=== PATIENT | male | born 1950 | race Caucasian/White ===

== ENCOUNTER → 2016-10-23 | Outpatient (REF) | payer OTHER ==
[~2016-10-23] MED LIST: ASPI1TAB PO; CRES5TAB PO; IBUP800T23 PO; LISI-538 PO; VITATAB11 PO
[2016-10-23 12:52] LABS: MEAN CORPUSCULAR HEMOGLOBIN 30.4 pg (27.0-33.0); MEAN CORPUSCULAR HGB CONC 34.6 g/dl (32.0-36.5); RED CELL DISTRIBUTION WIDTH 12.9 % (11.5-14.5); WHITE BLOOD COUNT 12.6 K/mm3 (4.0-10.0)
[2016-10-23 13:26] LABS: ALBUMIN 4.4 GM/DL (3.2-5.2); ALBUMIN/GLOBULIN RATIO 1.33 (1.00-1.93); BILIRUBIN,TOTAL 0.9 MG/DL (0.2-1.0); CALCIUM LEVEL 9.7 MG/DL (8.8-10.2); CREATININE FOR GFR 1.33 MG/DL (0.70-1.30); GLOMERULAR FILTRATION RATE 57.3 (>49); POTASSIUM SERUM 4.6 MEQ/L (3.5-5.1); TOTAL PROTEIN 7.7 GM/DL (6.4-8.2)
== END ==
LOC: M SFHCADAM 10:06
PROVIDERS: ATTEND Physician Assistant
DX: K74.69 Other cirrhosis of liver (principal); E78.00 Pure hypercholesterolemia, unspecified; E55.9 Vitamin D deficiency, unspecified

== ENCOUNTER → 2016-11-04 | Outpatient (CLI) | payer OTHER ==
--- NOTE | 2016-11-04 10:36 | REP ---
Right upper quadrant sonography: History: Right upper quadrant pain. Comparison study: May 01, 2016. Findings: Scanning through the right upper quadrant of the abdomen demonstrates a normal sized, thin-walled gallbladder without evidence of stone or polyp. Common bile duct is normal measuring 0.4 cm in greatest diameter. No focal liver lesion is seen. Liver size is normal. No pancreatic abnormality is observed. No right renal abnormality is seen. There is no evidence of ascites. The right kidney measures 11.9 x 7.4 x 5.4 cm. Impression: Negative right upper quadrant sonography.
== END ==
LOC: M WHC 08:50
PROVIDERS: ATTEND Physician Assistant
DX: K74.69 Other cirrhosis of liver (principal)

== ENCOUNTER → 2016-11-06 | Outpatient (CLI) | payer OTHER ==
--- NOTE | 2016-11-06 08:46 | REP ---
MRI LUMBAR SPINE WITHOUT AND WITH CONTRAST: HISTORY: Back pain. CONTRAST: ProHance, 9 mL. COMPARISON: 06/21/2010. Decreased signal intensity on T2-weighted images is present in the lumbar intervertebral discs. The discs are decreased in height. These findings are consistent with disc degeneration. A diffuse disc bulge is present at the L1-2 level. There is minimal compression of the thecal sac. The L1 nerves exit the neural foramina without compression. A diffuse disc bulge is present at the L2-3 level. There is hypertrophy of the ligamenta flava and posterior articulating facets. These findings produce minimal central canal stenosis. The L2 nerves exit the neural foramina without compression. A diffuse disc bulge is present at the L3-4 level. There is hypertrophy of the ligamenta flava and posterior articulating facets. These findings produce minimal central canal stenosis. The L3 nerves exit the neural foramina without compression. A diffuse disc bulge and small central disc protrusion are present at the L4-5 level. There is hypertrophy of the ligamenta flava and posterior articulating facets. These findings produce minimal central canal stenosis. The L4 nerves exit the neural foramina without compression. A right laminectomy defect is present. A small amount of enhancing scar tissue is present in the right lateral aspect of the spinal canal. The scar tissue involves the right L5 nerve. The degree of enhancement is decreased compared to the previous study. A diffuse disc bulge is present at the L5-S1 level. There is minimal compression of the thecal sac. There is hypertrophy of the posterior articulating facets. There is compression of the L5 nerves in the neural foramina. The conus medullaris is normal in appearance terminating at the level of the T12-L1 intervertebral disc. Normal signal intensity is present in the lumbar vertebral bodies. IMPRESSION: 1. Diffuse disc bulge at the L1-2 and L5-L1 levels with minimal thecal sac compression. There is compression of the L5 nerves in the neural foramina. 2. Minimal central canal stenosis at the L2-3 and L3-4 levels secondary to disc bulge, ligamentous and facet hypertrophy. 3. Minimal central canal stenosis at the L4-5 level secondary to disc bulge, disc protrusion, ligamentous and facet hypertrophy. A right laminectomy defect is present. Scar tissue involve the right L5 nerve. The degree of enhancement is decreased compared to the previous study. The canal stenosis at the above levels is a new finding. Signed by Rah Rosales MD 11/06/2016 09:06 A
== END ==
LOC: M RAD 06:42
PROVIDERS: ATTEND Physician Assistant
DX: M54.5 Low back pain (principal)

== ENCOUNTER → 2016-12-24 | Outpatient (CLI) | payer OTHER ==
[~2016-12-24] VITALS: Ht 172.7 cm; Wt 88.0 kg
[~2016-12-24] MED LIST changes: +LIDOCAINE 2% INJ 100 MG/5 ML SDV (FOR ANES.) As Ordered ONE; +NAPR375T2 PO; +NS 1,000 ML IV SCH; +PROPOFOL 200 MG/20 ML VIAL As Ordered ONE
--- NOTE | 2016-12-24 09:43 | ROOR ---
Patient Name: Chandan Swann Procedure Date: 12/24/2016 9:24 AM Date of : 1950 Age: 66 Room: [facility] Gender: Male Note Status: Finalized Procedure: Colonoscopy Indications: High risk colon cancer surveillance: Personal history of colonic polyps, Last colonoscopy: October 2015 Providers: Vijay FOWLER MD Referring MD: Fredis Jay MD Requesting Provider: Medicines: Monitored Anesthesia Care Complications: No immediate complications. Procedure: Pre-Anesthesia Assessment: - The heart rate, respiratory rate, oxygen saturations, blood pressure, adequacy of pulmonary ventilation, and response to care were monitored throughout the procedure. The Colonoscope was introduced through the anus and advanced to the cecum, identified by appendiceal orifice and ileocecal valve. The colonoscopy was performed without difficulty. The patient tolerated the procedure well. The quality of the bowel preparation was adequate. Findings: The perianal and digital rectal examinations were normal. (EXAM: Complete, PREP:Adequate) A 4 mm polyp was found in the hepatic flexure. The polyp was sessile. The polyp was removed with a cold snare. Resection and retrieval were complete. Internal hemorrhoids were found during retroflexion. The hemorrhoids were medium-sized. The exam was otherwise without abnormality on direct and retroflexion views. Impression: - One 4 mm polyp at the hepatic flexure, removed with a cold snare. Resected and retrieved. - Internal hemorrhoids. - The examination was otherwise normal on direct and retroflexion views. Recommendation: - Repeat colonoscopy in 5 years for surveillance. Vijay Fowler MD Vijay FOWLER MD 12/24/2016 9:42:48 AM This report has been signed electronically. Number of Addenda: 0 Note Initiated On: 12/24/2016 9:24 AM Estimated Blood Loss: Estimated blood loss: none.
[2016-12-24 10:10] VITALS: BP 114/70
== END | disposition home or self-care (01) ==
LOC: M OPP 07:47
PROVIDERS: ATTEND Internal Medicine Gastroenterology
DX: Z12.11 Encounter for screening for malignant neoplasm of colon (principal); D12.3 Benign neoplasm of transverse colon; K64.8 Other hemorrhoids; Z86.010 Personal history of colon polyps; I10 Essential (primary) hypertension; E78.5 Hyperlipidemia, unspecified; M19.90 Unspecified osteoarthritis, unspecified site; K74.60 Unspecified cirrhosis of liver; F17.210 Nicotine dependence, cigarettes, uncomplicated; Z57.8 Occupational exposure to other risk factors; Z86.19 Personal history of other infectious and parasitic diseases; Z79.82 Long term (current) use of aspirin; Z79.899 Other long term (current) drug therapy; Z79.1 Long term (current) use of non-steroidal anti-inflammatories (NSAID)

== ENCOUNTER → 2017-04-24 | Outpatient (REF) | payer OTHER ==
[~2017-04-24] MED LIST changes: +IBUP1TAB7 PO; -IBUP800T23 PO; -LIDOCAINE 2% INJ 100 MG/5 ML SDV (FOR ANES.) As Ordered ONE; +NAPR-855 PO; -NAPR375T2 PO; -NS 1,000 ML IV SCH; -PROPOFOL 200 MG/20 ML VIAL As Ordered ONE
[2017-04-24 12:49] LABS: ALBUMIN/GLOBULIN RATIO 1.18 (1.00-1.93); ALKALINE PHOSPHATASE 80 U/L (45-117); ALT/SGPT 42 U/L (12-78); ANION GAP 6 MEQ/L (8-16); AST/SGOT 32 U/L (15-37); BILIRUBIN,TOTAL 0.7 MG/DL (0.2-1.0); BLOOD UREA NITROGEN 24 MG/DL (7-18); CALCIUM LEVEL 9.4 MG/DL (8.8-10.2); CARBON DIOXIDE LEVEL 27 MEQ/L (21-32); CHLORIDE LEVEL 107 MEQ/L (98-107); CREATININE FOR GFR 0.98 MG/DL (0.70-1.30); GLOMERULAR FILTRATION RATE > 60.0 (>49); GLUCOSE, FASTING 122 MG/DL (80-110); POTASSIUM SERUM 5.1 MEQ/L (3.5-5.1); SODIUM LEVEL 140 MEQ/L (136-145); TOTAL PROTEIN 7.4 GM/DL (6.4-8.2)
== END ==
LOC: M SFHCADAM 08:31
PROVIDERS: ATTEND Physician Assistant
DX: B18.2 Chronic viral hepatitis C (principal); I10 Essential (primary) hypertension

== ENCOUNTER → 2017-10-07 | Outpatient (REF) | payer OTHER ==
[2017-10-07 12:56] LABS: BLOOD UREA NITROGEN 21 MG/DL (7-18); CREATININE FOR GFR 1.01 MG/DL (0.70-1.30); GLOMERULAR FILTRATION RATE > 60.0 (>49)
== END ==
LOC: M LABDRWAD 12:24
PROVIDERS: ATTEND Physical Medicine & Rehabilitation
DX: M51.36 Other intervertebral disc degeneration, lumbar region (principal); M47.896 Other spondylosis, lumbar region

== ENCOUNTER → 2017-11-13 | Outpatient (REF) | payer OTHER ==
[2017-11-13 13:14] LABS: PLATELET COUNT, AUTOMATED 222 10^3/uL (150-450)
[2017-11-13 13:25] LABS: INR 0.94; PROTHROMBIN TIME 12.7 SECONDS (12.4-14.5)
[2017-11-13 13:26] LABS: PARTIAL THROMBOPLASTIN TIME 35.1 SECONDS (26.8-37.9)
== END ==
LOC: M LABDRAW1 11:40
DX: M51.37 Other intervertebral disc degeneration, lumbosacral region (principal)

== ENCOUNTER → 2018-05-08 | Outpatient (REF) | payer OTHER ==
[2018-05-09 16:49] LABS: HEMATOCRIT 46.7 % (42.0-52.0); HEMOGLOBIN 15.7 g/dl (13.5-17.5); MEAN CORPUSCULAR HGB CONC 33.6 g/dl (32.0-36.5); MEAN CORPUSCULAR VOLUME 92.1 fl (80.0-96.0); PLATELET COUNT, AUTOMATED 233 10^3/uL (150-450); RED BLOOD COUNT 5.07 10^6/uL (4.30-6.10); RED CELL DISTRIBUTION WIDTH 13.7 % (11.5-14.5); WHITE BLOOD COUNT 10.1 10^3/uL (4.0-10.0)
[2018-05-09 17:11] LABS: ALBUMIN 4.2 GM/DL (3.2-5.2); ALBUMIN/GLOBULIN RATIO 1.14 (1.00-1.93); ALKALINE PHOSPHATASE 75 U/L (45-117); ALT/SGPT 58 U/L (12-78); ANION GAP 9 MEQ/L (8-16); AST/SGOT 38 U/L (7-37); BILIRUBIN,TOTAL 0.4 MG/DL (0.2-1.0); BLOOD UREA NITROGEN 31 MG/DL (7-18); CALCIUM LEVEL 9.2 MG/DL (8.8-10.2); CARBON DIOXIDE LEVEL 27 MEQ/L (21-32); CHLORIDE LEVEL 104 MEQ/L (98-107); CHOLESTEROL LEVEL 149 MG/DL (<200); CHOLESTEROL RISK RATIO 4.138 (<5); FREE T4 0.76 NG/DL (0.76-1.46); GLOMERULAR FILTRATION RATE > 60.0 (>49); GLUCOSE, FASTING 127 MG/DL (70-100); HDL CHOLESTEROL 36 MG/DL (>40); LDL CHOLESTEROL 67.2 MG/DL (<100); NON-HDL-C 113 MG/DL; POTASSIUM SERUM 4.7 MEQ/L (3.5-5.1); SODIUM LEVEL 140 MEQ/L (136-145); TOTAL PROTEIN 7.9 GM/DL (6.4-8.2); TRIGLYCERIDES LEVEL 229 MG/DL (<150)
[2018-05-11 09:52] LABS: TOTAL 25(OH) VITAMIN D 73.5 NG/ML (30.0-100.0)
== END ==
LOC: M SFHCADAM 19:00
DX: B18.2 Chronic viral hepatitis C (principal); K74.69 Other cirrhosis of liver; E78.00 Pure hypercholesterolemia, unspecified; I10 Essential (primary) hypertension; R63.5 Abnormal weight gain; E55.9 Vitamin D deficiency, unspecified

== ENCOUNTER → 2018-05-28 | Outpatient (CLI) | payer OTHER | LOC: M WHC 08:55 | DX: B18.2 Chronic viral hepatitis C (principal); K74.69 Other cirrhosis of liver | CPT/HCPCS: 76705 ==

== ENCOUNTER → 2018-06-02 | Outpatient (CLI) | payer OTHER | LOC: M RAD 08:11 | DX: Z12.2 Encounter for screening for malignant neoplasm of respiratory organs (principal); F17.200 Nicotine dependence, unspecified, uncomplicated | CPT/HCPCS: G0297 ==

== ENCOUNTER → 2018-08-13 | Outpatient (REF) | payer OTHER ==
[2018-08-13 14:27] LABS: ALBUMIN 4.3 GM/DL (3.2-5.2); ALBUMIN/GLOBULIN RATIO 1.26 (1.00-1.93); ALKALINE PHOSPHATASE 75 U/L (45-117); ALT/SGPT 53 U/L (12-78); AST/SGOT 31 U/L (7-37); BILIRUBIN,DIRECT 0.1 MG/DL (0.0-0.2); BILIRUBIN,TOTAL 0.5 MG/DL (0.2-1.0); ESTIMATED AVERAGE GLUCOSE 137 MG/DL (60-110); FREE T4 0.83 NG/DL (0.76-1.46); HEMOGLOBIN A1c 6.4 %; TOTAL PROTEIN 7.7 GM/DL (6.4-8.2); URINE TOTAL PROTEIN 5.4 MG/DL (0-12)
[2018-08-13 14:29] LABS: FOLATE 13.4 NG/ML (>5.4)
[2018-08-14 14:47] LABS: ANTINUCLEAR ANTIBODIES DIRECT Negative (Negative); Lyme Disease IgG/IgM Antibodie <0.91 ISR (0.00-0.90); Lyme Disease IgM Ab Quantitati <0.80 index (0.00-0.79)
== END ==
LOC: M LABDRAW1 13:47
DX: M48.061 Spinal stenosis, lumbar region without neurogenic claudication (principal)

== ENCOUNTER → 2019-03-22 | Outpatient (REF) | payer OTHER ==
[~2019-03-22] MED LIST changes: -ASPI1TAB PO; +ASPI81TA26 PO
[2019-03-22 12:32] LABS: BLOOD UREA NITROGEN 21 MG/DL (7-18); CREATININE FOR GFR 1.07 MG/DL (0.70-1.30); GLOMERULAR FILTRATION RATE > 60.0 (>49)
== END ==
LOC: M LABDRAW1 11:10
PROVIDERS: ATTEND Physician Assistant
DX: M47.896 Other spondylosis, lumbar region (principal)

== ENCOUNTER → 2019-06-15 | Outpatient (CLI) | payer OTHER, MEDICARE ==
--- NOTE | 2019-06-15 10:49 | REP ---
Right upper quadrant abdominal ultrasound: Comparison is 05/28/2018. There is no cholelithiasis, gallbladder wall thickening or pericholecystic fluid. There is no intrahepatic or extra hepatic biliary duct dilatation. The common duct measures 4.8 mm in diameter. The hepatic parenchyma is hyperechoic compatible with hepato steatosis. There is a 1.6 centimeter upper circumscribed hepatic left lobe cyst containing internal echoes, likely debris. There are no solid hepatic masses. The visualized pancreatic parenchyma is unremarkable. There is no right renal calculus, hydronephrosis, mass or cyst. The right kidney is normal size measuring 11.5 x 5.4 x 5.9 cm. Impression: Hepato steatosis. Hepatic left lobe cyst. There is no hepatic mass. Electronically Signed by Del Dumas MD 06/15/2019 10:41 A
== END ==
LOC: M WHC 09:07
PROVIDERS: ATTEND Physician Assistant
DX: K74.69 Other cirrhosis of liver (principal); K76.0 Fatty (change of) liver, not elsewhere classified; K76.89 Other specified diseases of liver

== ENCOUNTER → 2019-10-23 | Outpatient (REF) | payer OTHER ==
[2019-10-23 17:33] LABS: MEAN CORPUSCULAR HEMOGLOBIN 30.1 pg (27.0-33.0); MEAN CORPUSCULAR VOLUME 94.2 fl (80.0-96.0); PLATELET COUNT, AUTOMATED 193 10^3/uL (150-450); RED BLOOD COUNT 5.31 10^6/uL (4.30-6.10); WHITE BLOOD COUNT 9.7 10^3/uL (4.0-10.0)
[2019-10-23 17:40] LABS: ALT/SGPT 91 U/L (12-78); BILIRUBIN,TOTAL 0.9 MG/DL (0.2-1.0); BLOOD UREA NITROGEN 19 MG/DL (7-18); CALCIUM LEVEL 9.7 MG/DL (8.8-10.2); CARBON DIOXIDE LEVEL 26 MEQ/L (21-32); CHLORIDE LEVEL 106 MEQ/L (98-107); CHOLESTEROL LEVEL 182 MG/DL (<200); CHOLESTEROL RISK RATIO 5.515 (<5); CREATININE FOR GFR 1.07 MG/DL (0.70-1.30); GLOMERULAR FILTRATION RATE > 60.0 (>49); GLUCOSE, FASTING 167 MG/DL (70-100); HDL CHOLESTEROL 33 MG/DL (>40); LDL CHOLESTEROL 93 MG/DL (<100); NON-HDL-C 149 MG/DL; POTASSIUM SERUM 4.7 MEQ/L (3.5-5.1); SODIUM LEVEL 139 MEQ/L (136-145); TOTAL PROTEIN 7.7 GM/DL (6.4-8.2); TRIGLYCERIDES LEVEL 279 MG/DL (<150)
[2019-10-25 08:55] LABS: TOTAL 25(OH) VITAMIN D 59.7 NG/ML (30.0-100.0)
== END ==
LOC: M SFHCADAM 08:19
PROVIDERS: ATTEND Physician Assistant
DX: K74.69 Other cirrhosis of liver (principal); B18.2 Chronic viral hepatitis C; I10 Essential (primary) hypertension; K74.0 Hepatic fibrosis

== ENCOUNTER → 2019-11-11 | Outpatient (CLI) | payer OTHER, MEDICARE ==
--- NOTE | 2019-11-11 08:44 | REP ---
Abdominal right upper quadrant ultrasound for cirrhosis: Comparison is 06/15/2019. There is no cholelithiasis, gallbladder wall thickening or pericholecystic fluid. There is no intrahepatic or extrahepatic biliary duct dilatation. The common biliary duct measures 6 mm in diameter. The hepatic parenchyma is diffusely hyperechoic and difficult to penetrate with the acoustic beam, compatible with hepato steatosis. The There are no solid hepatic masses. There is a cyst in the hepatic left lobe measuring 1.8 x 1.7 x 1.9 cm. This cyst measured 1.6 cm on the previous study. The pancreas is obscured by the dense hepatic parenchyma and bowel gas. The right kidney is normal size measuring report 9-5.7 x 6 x 1 cm. There is no right renal solid or cystic mass. There is no right renal calculus or hydronephrosis. There is no right upper quadrant free fluid. Impression: The hepatic parenchyma is diffusely echogenic compatible with hepato steatosis. There are no solid hepatic masses. There is a 1.9 cm hepatic left lobe cyst. Electronically Signed by Del Dumas MD 11/11/2019 08:36 A
== END ==
LOC: M RAD 08:03
PROVIDERS: ATTEND Physician Assistant
DX: K74.69 Other cirrhosis of liver (principal)

== ENCOUNTER → 2019-12-01 | Outpatient (REF) | payer MEDICARE, OTHER ==
[2019-12-01 20:35] LABS: HEMOGLOBIN A1c 9.6 %
[2019-12-01 21:53] LABS: ALBUMIN 4.4 GM/DL (3.2-5.2); ALT/SGPT 96 U/L (12-78); BILIRUBIN,TOTAL 0.4 MG/DL (0.2-1.0); BLOOD UREA NITROGEN 24 MG/DL (7-18); CALCIUM LEVEL 10.1 MG/DL (8.8-10.2); CARBON DIOXIDE LEVEL 27 MEQ/L (21-32); CHLORIDE LEVEL 99 MEQ/L (98-107); CREATININE FOR GFR 1.35 MG/DL (0.70-1.30); FERRITIN 694 NG/ML (26-388); GLOMERULAR FILTRATION RATE 55.8 (>49); GLUCOSE, FASTING 424 MG/DL (70-100); POTASSIUM SERUM 5.4 MEQ/L (3.5-5.1); SODIUM LEVEL 136 MEQ/L (136-145); TOTAL PROTEIN 8.1 GM/DL (6.4-8.2)
[2019-12-03 09:54] LABS: HEPATITIS B SURFACE ANTIGEN NEGATIVE (NEGATIVE)
[2019-12-03 10:22] LABS: HEPATITIS B CORE ANTIBODY IGM NEGATIVE (NEGATIVE)
[2019-12-03 10:24] LABS: HEPATITIS A ANTIBODY IGM NEGATIVE (NEGATIVE)
[2019-12-03 10:53] LABS: HEPATITIS C VIRUS ABY INDEX > 11.0 INDEX (<0.8)
[2019-12-06 14:11] LABS: ANTI-MITOCHONDRIAL ANTIBODY <20.0 Units (0.0-20.0); ANTINUCLEAR ANTIBODIES DIRECT Negative (Negative); HEPATITIS C QUANTITATION HCV Not Detected IU/mL (.)
== END ==
LOC: M SFHCADAM 16:33
PROVIDERS: ATTEND Physician Assistant
DX: I10 Essential (primary) hypertension (principal); R73.01 Impaired fasting glucose; B18.2 Chronic viral hepatitis C
CPT/HCPCS: 80053; 82728; 83036; 86038; 86255; 86705; 86709; 86803; 87340; 87521; 87522; G0463

== ENCOUNTER → 2019-12-14 | Outpatient (CLI) | payer MEDICARE, OTHER ==
[2019-12-14 17:30] LABS: BLOOD UREA NITROGEN 20 MG/DL (7-18); CREATININE FOR GFR 1.18 MG/DL (0.70-1.30); GLOMERULAR FILTRATION RATE > 60.0 (>49); IRON (FE) 102 UG/DL (65-175); TOTAL IRON BINDING CAPACITY 352 UG/DL (250-450)
[2019-12-21 10:06] LABS: AFP TUMOR L3% 6.9 % (0.0-9.9); AFP TUMOR TOTAL 6.1 ng/mL (0.0-8.0); ANCA-ATYPICAL <1:20 titer (Neg:<1:20); CYTOPLASMIC NEUTROP AB ANCA-C <1:20 titer (Neg:<1:20); PERINUCLEAR AB ANCA-P <1:20 titer (Neg:<1:20)
== END ==
LOC: M LABDRWAD 14:35
PROVIDERS: ATTEND Internal Medicine Gastroenterology
DX: K74.60 Unspecified cirrhosis of liver (principal)
CPT/HCPCS: 36415; 81256; 82107; 82565; 83550; 84520; 86256; G0463

== ENCOUNTER → 2019-12-21 | Outpatient (CLI) | payer MEDICARE, OTHER ==
[~2019-12-21] MED LIST changes: +GASTROGRAFIN SOLUTION 30ML (Q9963) As Ordered ONE; +ISOVUE-370 76% 100ML VIAL (Q9967) As Ordered ONE
--- NOTE | 2019-12-21 13:44 | REPVR ---
PROCEDURE INFORMATION: Exam: CT Abdomen With Contrast Exam date and time: 12/21/2019 1:22 PM Age: 69 years old Clinical indication: Condition or disease and abnormal findings; Abnormal radiologic finding of the abdomen; Radiologic exam and body structure: US; Liver condition; Cirrhosis and fatty; Additional info: Abn findings on diag img of liver and biliary trac TECHNIQUE: Imaging protocol: Computed tomography images of the abdomen with intravenous contrast. Radiation optimization: All CT scans at this facility use at least one of these dose optimization techniques: automated exposure control; mA and/or kV adjustment per patient size (includes targeted exams where dose is matched to clinical indication); or iterative reconstruction. Contrast material: ISOVUE 370; Contrast volume: 100 ml; Contrast route: IV; COMPARISON: LIVER US 11/11/2019 8:16 AM The prior report is not available for correlation at the time of interpretation. FINDINGS: Lungs: Interstitial prominence and trace dependent airspace disease. Coronary artery calcification. Questionable wall thickening in the nondistended distal esophagus. Liver: Diffuse fatty infiltration of the liver. 1.6 cm hyperdense nodular lesion in the left hepatic lobe, statistically most likely representing a hemangioma. Gallbladder and bile ducts: Gallbladder dilatation without cholelithiasis or biliary ductal dilatation. Pancreas: Borderline pancreatic ductal dilatation. 7 mm nodular hypodensity of fat attenuation in the pancreatic tail. Spleen: No splenomegaly. Adrenals: Unremarkable adrenals. Kidneys and ureters: Multiple renal cysts, including a 1.7 cm exophytic right upper pole cyst. No hydronephrosis. Stomach and bowel: No significant small bowel dilatation. Diverticula, without pericolonic inflammation. Intraperitoneal space: No free fluid. Lymph nodes: Subcentimeter lymph nodes. Vasculature: Vascular calcification. Normal caliber of the abdominal aorta. Bones/joints: Degenerative change and disc bulging. Schmorl's nodes and vertebral endplate irregularity. IMPRESSION: 1. Fatty infiltration of the liver and 1.6 cm hyperdense nodular lesion in the left hepatic lobe, statistically most likely representing a hemangioma. 2. Additional findings as described above. Electronically signed by: Nacho Boyle On 12/21/2019 13:44:29 PM
== END ==
LOC: M RAD 12:01
PROVIDERS: ATTEND Internal Medicine Gastroenterology
DX: R93.2 Abnormal findings on diagnostic imaging of liver and biliary tract (principal); R97.8 Other abnormal tumor markers; K74.60 Unspecified cirrhosis of liver
CPT/HCPCS: 74160; Q9963; Q9967

== ENCOUNTER → 2020-01-26 | Outpatient (REF) | payer MEDICARE, OTHER ==
[~2020-01-26] MED LIST changes: -GASTROGRAFIN SOLUTION 30ML (Q9963) As Ordered ONE; -ISOVUE-370 76% 100ML VIAL (Q9967) As Ordered ONE
[2020-01-26 13:35] LABS: ALBUMIN 3.9 GM/DL (3.2-5.2); BILIRUBIN,DIRECT 0.1 MG/DL (0.0-0.2); BILIRUBIN,TOTAL 0.7 MG/DL (0.2-1.0); TOTAL PROTEIN 7.6 GM/DL (6.4-8.2)
== END ==
LOC: M LABDRWAD 12:33
PROVIDERS: ATTEND Internal Medicine Gastroenterology
DX: K75.81 Nonalcoholic steatohepatitis (NASH) (principal)

== ENCOUNTER → 2020-03-14 | Outpatient (REF) | payer MEDICARE, OTHER ==
[2020-03-14 13:29] LABS: ALBUMIN 3.9 GM/DL (3.2-5.2); ALT/SGPT 67 U/L (12-78); BILIRUBIN,TOTAL 0.6 MG/DL (0.2-1.0); BLOOD UREA NITROGEN 20 MG/DL (7-18); CALCIUM LEVEL 9.5 MG/DL (8.8-10.2); CARBON DIOXIDE LEVEL 26 MEQ/L (21-32); CHLORIDE LEVEL 107 MEQ/L (98-107); CHOLESTEROL LEVEL 221 MG/DL (<200); CHOLESTEROL RISK RATIO 6.314 (<5); CREATININE FOR GFR 1.13 MG/DL (0.70-1.30); GLOMERULAR FILTRATION RATE > 60.0 (>42); GLUCOSE, FASTING 113 MG/DL (70-100); HDL CHOLESTEROL 35 MG/DL (>40); LDL CHOLESTEROL 151 MG/DL (<100); NON-HDL-C 186 MG/DL; SODIUM LEVEL 139 MEQ/L (136-145); TOTAL PROTEIN 7.7 GM/DL (6.4-8.2); TRIGLYCERIDES LEVEL 177 MG/DL (<150)
[2020-03-14 16:20] LABS: HEMOGLOBIN A1c 7.2 %
== END ==
LOC: M SFHCADAM 09:09
PROVIDERS: ATTEND Physician Assistant
DX: E11.65 Type 2 diabetes mellitus with hyperglycemia (principal); K76.0 Fatty (change of) liver, not elsewhere classified

== ENCOUNTER → 2020-06-16 | Outpatient (REF) | payer MEDICARE, OTHER ==
[2020-06-16 19:17] LABS: HEMATOCRIT 47.2 % (42.0-52.0); HEMOGLOBIN 15.6 g/dl (13.5-17.5); MEAN CORPUSCULAR HEMOGLOBIN 30.8 pg (27.0-33.0); MEAN CORPUSCULAR HGB CONC 33.1 g/dl (32.0-36.5); MEAN CORPUSCULAR VOLUME 93.3 fl (80.0-96.0); PLATELET COUNT, AUTOMATED 243 10^3/uL (150-450); RED BLOOD COUNT 5.06 10^6/uL (4.30-6.10); WHITE BLOOD COUNT 9.4 10^3/uL (4.0-10.0)
[2020-06-16 19:24] LABS: ALBUMIN 3.9 GM/DL (3.2-5.2); ALT/SGPT 52 U/L (12-78); BILIRUBIN,TOTAL 0.6 MG/DL (0.2-1.0); BLOOD UREA NITROGEN 18 MG/DL (7-18); CALCIUM LEVEL 9.3 MG/DL (8.8-10.2); CARBON DIOXIDE LEVEL 26 MEQ/L (21-32); CHLORIDE LEVEL 105 MEQ/L (98-107); CHOLESTEROL LEVEL 128 MG/DL (<200); CHOLESTEROL RISK RATIO 3.657 (<5); CREATININE FOR GFR 1.15 MG/DL (0.70-1.30); GLOMERULAR FILTRATION RATE > 60.0 (>42); GLUCOSE, FASTING 103 MG/DL (70-100); HDL CHOLESTEROL 35 MG/DL (>40); LDL CHOLESTEROL 77 MG/DL (<100); NON-HDL-C 93 MG/DL; POTASSIUM SERUM 4.6 MEQ/L (3.5-5.1); SODIUM LEVEL 138 MEQ/L (136-145); TOTAL PROTEIN 7.9 GM/DL (6.4-8.2); TRIGLYCERIDES LEVEL 82 MG/DL (<150)
[2020-06-16 21:59] LABS: HEMOGLOBIN A1c 6.2 %
== END ==
LOC: M SFHCADAM 17:57
PROVIDERS: ATTEND Physician Assistant
DX: E78.2 Mixed hyperlipidemia (principal); K74.69 Other cirrhosis of liver; I10 Essential (primary) hypertension
CPT/HCPCS: 36415; 80053; 80061; 83036; 85027; G0463

== ENCOUNTER → 2020-10-09 | Outpatient (CLI) | payer MEDICARE, OTHER ==
--- NOTE | 2020-10-09 14:08 | REP ---
INDICATION: NICOTINE DEPENDENCE, UNSPECIFIED, UNCOMPLICATED COMPARISON: 06/02/2018 TECHNIQUE: Axial noncontrast images from the thoracic inlet to the upper abdomen using low-dose lung screening technique (LDCT). FINDINGS: Lung mathew demonstrate minimal chronic appearing interstitial changes and mild emphysematous disease with bronchiectasis and trace basilar scarring. No consolidation, effusion, or pneumothorax. No suspicious nodule or mass lesion. Limited evaluation of the mediastinum demonstrates atherosclerotic changes to the thoracic aorta and coronary arteries without aortic aneurysm or cardiomegaly. IMPRESSION: Lung-RADS category 1. No suspicious nodule or mass lesion. Management recommendations include annual low-dose CT evaluation. <Electronically signed by Huang Muñiz > 10/09/20 [id number]
== END ==
LOC: M RAD 13:47
PROVIDERS: ATTEND Physician Assistant
DX: Z12.2 Encounter for screening for malignant neoplasm of respiratory organs (principal); F17.210 Nicotine dependence, cigarettes, uncomplicated

== ENCOUNTER → 2020-10-11 | Outpatient (REF) | payer MEDICARE, OTHER ==
[2020-10-11 17:00] LABS: ALBUMIN 4.1 GM/DL (3.2-5.2); BILIRUBIN,TOTAL 0.5 MG/DL (0.2-1.0); CALCIUM LEVEL 9.3 MG/DL (8.8-10.2); CHOLESTEROL RISK RATIO 5.081 (<5); CREATININE FOR GFR 1.28 MG/DL (0.70-1.30); GLOMERULAR FILTRATION RATE 59.1 (>42); POTASSIUM SERUM 4.5 MEQ/L (3.5-5.1); TOTAL PROTEIN 7.8 GM/DL (6.4-8.2)
[2020-10-11 17:03] LABS: HEMOGLOBIN A1c 6.1 %
== END ==
LOC: M SFHCADAM 12:05
PROVIDERS: ATTEND Physician Assistant
DX: K74.60 Unspecified cirrhosis of liver (principal); E11.65 Type 2 diabetes mellitus with hyperglycemia; K76.0 Fatty (change of) liver, not elsewhere classified; E78.2 Mixed hyperlipidemia

== ENCOUNTER → 2020-10-27 | Outpatient (CLI) | payer MEDICARE, OTHER ==
--- NOTE | 2020-10-27 09:55 | REP ---
INDICATION: UNSPECIFIED CIRRHOSIS OF LIVER COMPARISON: 11/11/2019 TECHNIQUE: Real time dimas scale ultrasound examination using curved array transducer. FINDINGS: Liver is diffusely hyperechoic with poor through transmission. There is a 2.8 x 2.0 x 1.7 cm hypoechoic avascular focus in the left hepatic lobe which cannot be further characterized by ultrasound but does not have the same anechoic appearance as on prior examination. The gallbladder is distended and measures greater than 12 cm in length and 5.6 x 6.9 cm diameter. No gallstones, wall thickening, or pericholecystic fluid is appreciated. No sonographic Hernández's sign was elicited and there is no evidence for biliary ductal dilatation. The common bile duct measures 5.6 mm diameter. Right kidney is normal in reniform shape without hydronephrosis and measures 13.5 x 6.1 x 5.7 cm. No ascites in the visualized right upper quadrant. IMPRESSION: 1. Marked hepatosteatosis. Hypoechoic area in the left lobe may represent focal fatty sparing, complex cyst, or further abnormality which cannot be further defined by ultrasound. Consider pre and postcontrast CT of the abdomen with delayed imaging for further investigation if necessary. 2. Hydropic appearing gallbladder without gallstones, pericholecystic fluid or biliary ductal dilatation. <Electronically signed by Huang Muñiz > 10/27/20 [id number]
== END ==
LOC: M RAD 09:11
PROVIDERS: ATTEND Physician Assistant
DX: K74.60 Unspecified cirrhosis of liver (principal); K76.0 Fatty (change of) liver, not elsewhere classified

== ENCOUNTER → 2020-12-11 | Outpatient (CLI) | payer MEDICARE, OTHER ==
[~2020-12-11] MED LIST changes: +ISOVUE-370 76% 100ML VIAL As Ordered ONE; -LISI-538 PO; +LISI20TA33 PO
--- NOTE | 2020-12-11 15:57 | REP ---
INDICATION: ABN IMAGING US LT LOBE OF LIVER COMPLEX CYST. COMPARISON: CT abdomen 12/21/2019, hepatic ultrasound 10/27/2020 TECHNIQUE: Precontrast scanning through the abdomen followed by bolus 100 mL Isovue 370 scanning through the abdomen. Delayed images were also done. Coronal and sagittal reconstructions provided. FINDINGS: CT abdomen: Lung bases show minimal dependent atelectatic change but are otherwise clear. Heart is not enlarged there is no pericardial thickening or effusion. I see no hiatal hernia. Precontrast images shows the liver intensely fatty replaced with low-density there is some mild focal fat sparing about the gallbladder fossa and also near the fissure. There is no cystic mass lesion in the left hepatic lobe. There is a focal zone of hyperdensity in the left hepatic lobe adjacent to the fissure which becomes near isodense on the delayed image. The gallbladder is without calcified stone or mass. Spleen is not enlarged and shows no focal lesion there is no ascites in the upper abdomen. Adrenal glands are normal. No hiatal hernia. Small bowel loops and colon in the abdomen proper were unremarkable. The bilateral kidneys are unremarkable. Atherosclerotic calcifications of the aorta noted without aneurysm no periaortic, retroperitoneal or mesenteric pathologic sized lymphadenopathy. The scattered nodes seen are felt to be normal size. Bones are grossly unremarkable for fracture or focal lesion there is discogenic endplate change and vacuum phenomena at L4-5 with mild endplate spurring at throughout the lower thoracic and lumbar spine but no for compression fractures. Visualized ribs intact IMPRESSION: 1. There is an intense fatty infiltration of the liver present. This may contribute to the cystic appearance of the lesion on ultrasound in the left hepatic lobe which is most consistent with an hemangioma on CT. Its enhancement is followed by near isointensity on delayed images. There is no suspicious hepatic mass, hepatomegaly, biliary dilatation or ascites. 2. Gallbladder, adrenal glands, kidneys, pancreas, spleen, stomach and bowel loops grossly unremarkable. 3. Some degenerative changes throughout the spine, no destructive lesion. 4. Atherosclerotic calcifications of the aorta without aneurysm. <Electronically signed by Michael Triplett > 12/11/20 [id number]
== END ==
LOC: M RAD 10:37
PROVIDERS: ATTEND Physician Assistant
DX: R93.2 Abnormal findings on diagnostic imaging of liver and biliary tract (principal); K76.0 Fatty (change of) liver, not elsewhere classified; I70.0 Atherosclerosis of aorta
CPT/HCPCS: 74170; Q9967

== ENCOUNTER → 2021-07-05 | Outpatient (REF) | payer MEDICARE, OTHER ==
[~2021-07-05] MED LIST changes: -ISOVUE-370 76% 100ML VIAL As Ordered ONE
[2021-07-05 11:41] LABS: HEMOGLOBIN A1c 5.7 %
[2021-07-05 11:53] LABS: ALBUMIN 3.9 GM/DL (3.2-5.2); ALT/SGPT 48 U/L (12-78); BILIRUBIN,TOTAL 0.7 MG/DL (0.2-1.0); BLOOD UREA NITROGEN 16 MG/DL (7-18); CALCIUM LEVEL 9.6 MG/DL (8.8-10.2); CARBON DIOXIDE LEVEL 30 MEQ/L (21-32); CHLORIDE LEVEL 105 MEQ/L (98-107); CHOLESTEROL LEVEL 131 MG/DL (<200); CHOLESTEROL RISK RATIO 3.447 (<5); CREATININE FOR GFR 1.08 MG/DL (0.70-1.30); GLOMERULAR FILTRATION RATE > 60.0 (>42); GLUCOSE, FASTING 94 MG/DL (70-100); HDL CHOLESTEROL 38 MG/DL (>40); LDL CHOLESTEROL 68 MG/DL (<100); NON-HDL-C 93 MG/DL; POTASSIUM SERUM 4.4 MEQ/L (3.5-5.1); SODIUM LEVEL 140 MEQ/L (136-145); TOTAL PROTEIN 7.7 GM/DL (6.4-8.2); TRIGLYCERIDES LEVEL 125 MG/DL (<150)
[2021-07-05 11:55] LABS: HEMOGLOBIN 15.5 g/dl (13.5-17.5); MEAN CORPUSCULAR HEMOGLOBIN 30.6 pg (27.0-33.0); MEAN CORPUSCULAR HGB CONC 33.7 g/dl (32.0-36.5); MEAN CORPUSCULAR VOLUME 90.9 fl (80.0-96.0); PLATELET COUNT, AUTOMATED 184 10^3/uL (150-450); RED BLOOD COUNT 5.06 10^6/uL (4.30-6.10); WHITE BLOOD COUNT 8.4 10^3/uL (4.0-10.0)
[2021-07-05 12:00] LABS: CREATININE, URINE 26.7 MG/DL; MALB URINE SIEMENS 6.6 MG/L; MAU/CREAT RATIO 24.7 MCG/MG (0.0-30.0)
== END ==
LOC: M SFHCADAM 08:43
PROVIDERS: ATTEND Physician Assistant
DX: I10 Essential (primary) hypertension (principal); K74.69 Other cirrhosis of liver; E11.9 Type 2 diabetes mellitus without complications; Z12.5 Encounter for screening for malignant neoplasm of prostate; E78.2 Mixed hyperlipidemia
CPT/HCPCS: 80053; 80061; 82043; 82105; 83036; 84439; 84443; 85027; 99406; G0103; G0463

== ENCOUNTER → 2021-10-31 | Outpatient (REF) | payer MEDICARE, OTHER | LOC: M SFHCADAM 08:09 | PROVIDERS: ATTEND Physician Assistant | DX: E55.9 Vitamin D deficiency, unspecified (principal) ==

== ENCOUNTER → 2022-01-04 | Outpatient (REF) | payer MEDICARE, OTHER ==
[2022-01-04 13:17] LABS: HEMOGLOBIN A1c 6.8 %
[2022-01-04 13:20] LABS: ALBUMIN 3.8 GM/DL (3.2-5.2); BILIRUBIN,TOTAL 0.8 MG/DL (0.2-1.0); CALCIUM LEVEL 9.2 MG/DL (8.8-10.2); CREATININE FOR GFR 1.37 MG/DL (0.70-1.30); GLOMERULAR FILTRATION RATE 54.4 (>42); POTASSIUM SERUM 4.4 MEQ/L (3.5-5.1); TOTAL PROTEIN 7.2 GM/DL (6.4-8.2)
== END ==
LOC: M SFHCADAM 08:00
PROVIDERS: ATTEND Physician Assistant
DX: E11.9 Type 2 diabetes mellitus without complications (principal); I10 Essential (primary) hypertension

== ENCOUNTER → 2022-01-10 | Outpatient (CLI) | payer MEDICARE, OTHER | LOC: M RAD 13:36 | PROVIDERS: ATTEND Physician Assistant | DX: Z12.2 Encounter for screening for malignant neoplasm of respiratory organs (principal); F17.210 Nicotine dependence, cigarettes, uncomplicated ==

== ENCOUNTER → 2022-01-29 | Outpatient (REF) | payer MEDICARE, OTHER | LOC: M LABDRWAD 12:34 | PROVIDERS: ATTEND Physician Assistant Medical | DX: K74.60 Unspecified cirrhosis of liver (principal) ==

== ENCOUNTER → 2022-02-23 | Outpatient (CLI) | payer MEDICARE, OTHER ==
[~2022-02-23] MED LIST changes: +CHLO25TA PO; +EQL50TAB2 PO; +LANTINJ4 SC; +METF10004 PO; +PREG150C PO; +TIZA10TA PO; +TRAM50TA2 PO
== END ==
LOC: M LABSMTC 11:13
PROVIDERS: ATTEND Anesthesiology
DX: Z20.828 Contact with and (suspected) exposure to other viral communicable diseases (principal); Z11.59 Encounter for screening for other viral diseases

== ENCOUNTER 2022-02-28 07:03 | Day surgery (SDC) | payer MEDICARE, OTHER ==
[~2022-02-28] VITALS: Ht 172.7 cm; Wt 99.5 kg
[~2022-02-28 07:03] MED LIST changes: +NS 1,000 ML IV ONE
[2022-02-28] MEDS ORDERED: propofoL 200 MG/20 ML VIAL As Ordered ONE (07:21)
[2022-02-28] MEDS ORDERED: LIDOCAINE 2% 100MG/5ML SDV (FOR ANES.) As Ordered ONE (07:22)
[2022-02-28 09:20] VITALS: BP 132/69
== END 2022-02-28 09:30 | disposition home or self-care (01) ==
LOC: M OPP 07:03
PROVIDERS: ATTEND Internal Medicine Gastroenterology
DX: Z12.11 Encounter for screening for malignant neoplasm of colon (principal); Z86.010 Personal history of colon polyps; D12.3 Benign neoplasm of transverse colon; D12.4 Benign neoplasm of descending colon; K62.1 Rectal polyp; K57.30 Diverticulosis of large intestine without perforation or abscess without bleeding; K64.8 Other hemorrhoids; Z79.02 Long term (current) use of antithrombotics/antiplatelets; Z79.4 Long term (current) use of insulin; Z79.82 Long term (current) use of aspirin; Z79.891 Long term (current) use of opiate analgesic; Z79.899 Other long term (current) drug therapy; F17.210 Nicotine dependence, cigarettes, uncomplicated; Z80.6 Family history of leukemia; Z86.19 Personal history of other infectious and parasitic diseases

== ENCOUNTER → 2022-07-08 | Outpatient (REF) | payer MEDICARE, OTHER ==
[~2022-07-08] MED LIST changes: -NS 1,000 ML IV ONE
[2022-07-08 13:13] LABS: HEMATOCRIT 45.3 % (42.0-52.0); HEMOGLOBIN 15.2 g/dl (13.5-17.5); MEAN CORPUSCULAR HEMOGLOBIN 31.7 pg (27.0-33.0); MEAN CORPUSCULAR HGB CONC 33.6 g/dl (32.0-36.5); MEAN CORPUSCULAR VOLUME 94.4 fl (80.0-96.0); PLATELET COUNT, AUTOMATED 210 10^3/uL (150-450); WHITE BLOOD COUNT 11.1 10^3/uL (4.0-10.0)
[2022-07-08 13:28] LABS: INR 0.81; PROTHROMBIN TIME 11.6 SECONDS (12.7-14.5)
[2022-07-08 14:33] LABS: ALBUMIN 3.9 GM/DL (3.2-5.2); ALT/SGPT 61 U/L (12-78); BILIRUBIN,TOTAL 0.5 MG/DL (0.2-1.0); BLOOD UREA NITROGEN 21 MG/DL (7-18); CALCIUM LEVEL 9.4 MG/DL (8.8-10.2); CARBON DIOXIDE LEVEL 25 MEQ/L (21-32); CHLORIDE LEVEL 103 MEQ/L (98-107); CHOLESTEROL LEVEL 135 MG/DL (<200); CHOLESTEROL RISK RATIO 3.857 (<5); CREATININE FOR GFR 1.21 MG/DL (0.70-1.30); FREE T4 0.83 NG/DL (0.76-1.46); GLOMERULAR FILTRATION RATE > 60.0 (>42); GLUCOSE, FASTING 174 MG/DL (70-100); HDL CHOLESTEROL 35 MG/DL (>40); LDL CHOLESTEROL 69 MG/DL (<100); NON-HDL-C 100 MG/DL; POTASSIUM SERUM 4.5 MEQ/L (3.5-5.1); SODIUM LEVEL 135 MEQ/L (136-145); TOTAL PROTEIN 7.6 GM/DL (6.4-8.2); TRIGLYCERIDES LEVEL 154 MG/DL (<150)
[2022-07-08 15:22] LABS: HEMOGLOBIN A1c 7.4 %
== END ==
LOC: M SFHCADAM 07:49
PROVIDERS: ATTEND Physician Assistant
DX: E11.9 Type 2 diabetes mellitus without complications (principal); I10 Essential (primary) hypertension; E78.2 Mixed hyperlipidemia; F17.200 Nicotine dependence, unspecified, uncomplicated; K74.69 Other cirrhosis of liver; Z12.5 Encounter for screening for malignant neoplasm of prostate
CPT/HCPCS: 80053; 80061; 82105; 83036; 84439; 84443; 85027; 85610; 85730; G0103

== ENCOUNTER → 2022-07-15 | Outpatient (CLI) | payer MEDICARE, OTHER | LOC: M WHC 07:33 | PROVIDERS: ATTEND Physician Assistant | DX: K74.69 Other cirrhosis of liver (principal); K76.0 Fatty (change of) liver, not elsewhere classified; K76.89 Other specified diseases of liver ==

== ENCOUNTER → 2022-08-02 | Outpatient (CLI) | payer OTHER | LOC: M PLARAD 15:02 | PROVIDERS: ATTEND Physician Assistant | DX: M51.36 Other intervertebral disc degeneration, lumbar region (principal) ==

== ENCOUNTER → 2022-09-30 | Outpatient (REF) | payer MEDICARE, OTHER ==
[2022-09-30 17:00] LABS: ALKALINE PHOSPHATASE 77 U/L (46-116); ALT/SGPT 63 U/L (7.0-40); AST/SGOT 53 U/L (<34); BILIRUBIN,TOTAL 0.6 MG/DL (0.3-1.2); BLOOD UREA NITROGEN 25 MG/DL (9-23); CALCIUM LEVEL 9.7 MG/DL (8.3-10.6); CARBON DIOXIDE LEVEL 24 MMOL/L (20-31); CHLORIDE LEVEL 105 MMOL/L (98-107); CREATININE FOR GFR 1.11 MG/DL (0.70-1.30); GLOMERULAR FILTRATION RATE > 60.0 (>42); GLUCOSE, FASTING 172 MG/DL (74-106); POTASSIUM SERUM 4.9 MMOL/L (3.5-5.1); SODIUM LEVEL 137 MMOL/L (136-145); TOTAL PROTEIN 7.5 G/DL (5.7-8.2)
[2022-09-30 18:44] LABS: HEMOGLOBIN A1c 8.1 % (4.0-6.0)
== END ==
LOC: M SFHCADAM 11:09
PROVIDERS: ATTEND Physician Assistant
DX: K74.69 Other cirrhosis of liver (principal); E11.9 Type 2 diabetes mellitus without complications

== ENCOUNTER → 2022-10-17 | Outpatient (CLI) | payer OTHER ==
[2022-10-17 14:25] LABS: PLATELET COUNT, AUTOMATED 222 10^3/uL (150-450)
[2022-10-17 14:37] LABS: INR 0.87; PARTIAL THROMBOPLASTIN TIME 31.9 SECONDS (24.8-34.2)
== END ==
LOC: M PLALAB 09:24
PROVIDERS: ATTEND Physician Assistant
DX: M51.36 Other intervertebral disc degeneration, lumbar region (principal)

== ENCOUNTER → 2022-11-19 | Outpatient (CLI) | payer OTHER, MEDICARE ==
[2022-11-19 16:43] LABS: ALKALINE PHOSPHATASE 82 U/L (46-116); ALT/SGPT 70 U/L (7.0-40); AST/SGOT 49 U/L (<34); BILIRUBIN,DIRECT 0.2 MG/DL (<0.4); BILIRUBIN,TOTAL 0.6 MG/DL (0.3-1.2); BLOOD UREA NITROGEN 24 MG/DL (9-23); CREATININE FOR GFR 1.21 MG/DL (0.70-1.30); GLOMERULAR FILTRATION RATE > 60.0 (>42); TOTAL PROTEIN 7.4 G/DL (5.7-8.2)
[2022-11-19 16:57] LABS: INR 0.88; PROTHROMBIN TIME 12.1 SECONDS (12.5-14.5)
== END ==
LOC: M LABDRWAD 13:34
PROVIDERS: ATTEND Internal Medicine Gastroenterology
DX: K74.60 Unspecified cirrhosis of liver (principal)

== ENCOUNTER → 2022-12-11 | Outpatient (CLI) | payer MEDICARE, OTHER ==
[~2022-12-11] MED LIST changes: +PROHANCE 279.3MG/ML 15ML VIAL ONE; +PROHANCE 279.3MG/ML 5ML VIAL ONE
== END ==
LOC: M PLAIMG 09:30
PROVIDERS: ATTEND Internal Medicine Gastroenterology
DX: D37.6 Neoplasm of uncertain behavior of liver, gallbladder and bile ducts (principal); R97.8 Other abnormal tumor markers; K74.60 Unspecified cirrhosis of liver; N28.1 Cyst of kidney, acquired
CPT/HCPCS: 74183; A9576

== ENCOUNTER → 2023-01-02 | Outpatient (REF) | payer MEDICARE, OTHER ==
[~2023-01-02] MED LIST changes: -PROHANCE 279.3MG/ML 15ML VIAL ONE; -PROHANCE 279.3MG/ML 5ML VIAL ONE
[2023-01-02 16:41] LABS: ALBUMIN 4.1 G/DL (3.2-5.2); ALKALINE PHOSPHATASE 78 U/L (46-116); ALT/SGPT 69 U/L (7.0-40); AST/SGOT 48 U/L (<34); BILIRUBIN,TOTAL 0.8 MG/DL (0.3-1.2); BLOOD UREA NITROGEN 29 MG/DL (9-23); CALCIUM LEVEL 9.4 MG/DL (8.3-10.6); CARBON DIOXIDE LEVEL 24 MMOL/L (20-31); CHLORIDE LEVEL 100 MMOL/L (98-107); CREATININE FOR GFR 1.23 MG/DL (0.70-1.30); GLOMERULAR FILTRATION RATE > 60.0 (>42); GLUCOSE, FASTING 181 MG/DL (74-106); POTASSIUM SERUM 4.3 MMOL/L (3.5-5.1); SODIUM LEVEL 135 MMOL/L (136-145); TOTAL PROTEIN 7.6 G/DL (5.7-8.2)
[2023-01-02 18:25] LABS: HEMOGLOBIN A1c 8.2 % (4.0-6.0)
== END ==
LOC: M SFHCADAM 11:41
PROVIDERS: ATTEND Physician Assistant
DX: K74.60 Unspecified cirrhosis of liver (principal); E11.9 Type 2 diabetes mellitus without complications; K76.89 Other specified diseases of liver; R77.2 Abnormality of alphafetoprotein

== ENCOUNTER → 2023-03-13 | Outpatient (CLI) | payer MEDICARE, OTHER | LOC: M RAD 12:35 | PROVIDERS: ATTEND Physician Assistant | DX: Z12.2 Encounter for screening for malignant neoplasm of respiratory organs (principal); F17.210 Nicotine dependence, cigarettes, uncomplicated; R91.1 Solitary pulmonary nodule ==

== ENCOUNTER 2023-04-15 07:17 | Day surgery (SDC) | payer MEDICARE, OTHER ==
[~2023-04-15] VITALS: Ht 172.7 cm; Wt 96.3 kg
[~2023-04-15 07:17] MED LIST changes: +ATOR40TA75 PO; +JARD1TAB PO; +METF500T13 PO; +NS 1,000 ML IV ONE
[2023-04-15] MEDS ORDERED: propofoL 500 MG/50 ML VIAL As Ordered ONE (08:44)
[2023-04-15] MEDS ORDERED: LIDOCAINE 2% 100MG/5ML SDV (FOR ANES.) As Ordered ONE (08:44)
[2023-04-15 09:09] VITALS: TEMP 97.4
[2023-04-15 09:35] VITALS: BP 124/70; O2SAT 96
== END 2023-04-15 09:42 | disposition home or self-care (01) ==
LOC: M OPP 07:17
PROVIDERS: ATTEND Internal Medicine Gastroenterology
DX: K57.30 Diverticulosis of large intestine without perforation or abscess without bleeding (principal); K63.5 Polyp of colon; Z86.010 Personal history of colon polyps; F17.200 Nicotine dependence, unspecified, uncomplicated; Z79.02 Long term (current) use of antithrombotics/antiplatelets; Z79.4 Long term (current) use of insulin; Z79.82 Long term (current) use of aspirin; Z79.891 Long term (current) use of opiate analgesic; Z79.899 Other long term (current) drug therapy

== ENCOUNTER → 2023-05-15 | Outpatient (REF) | payer MEDICARE, OTHER ==
[~2023-05-15] MED LIST changes: -NS 1,000 ML IV ONE
[2023-05-15 17:16] LABS: BASO # 0.2 10^3/uL (0.0-0.2); EOS # 0.2 10^3/uL (0.0-0.5); HEMATOCRIT 47.2 % (42.0-52.0); HEMOGLOBIN 16.1 g/dl (13.5-17.5); LYMPH # 2.6 10^3/uL (1.5-5.0); LYMPH % 28.3 % (24.0-44.0); MEAN CORPUSCULAR HEMOGLOBIN 31.8 pg (27.0-33.0); MEAN CORPUSCULAR HGB CONC 34.1 g/dl (32.0-36.5); MEAN CORPUSCULAR VOLUME 93.3 fl (80.0-96.0); NEUTROPHILS # 5.1 10^3/uL (1.5-8.5); PLATELET COUNT, AUTOMATED 163 10^3/uL (150-450); RED BLOOD COUNT 5.06 10^6/uL (4.30-6.10); WHITE BLOOD COUNT 9.1 10^3/uL (4.0-10.0)
[2023-05-15 17:21] LABS: ALBUMIN 4.1 G/DL (3.2-5.2); ALKALINE PHOSPHATASE 79 U/L (46-116); ALT/SGPT 61 U/L (7.0-40); AST/SGOT 35 U/L (<34); BLOOD UREA NITROGEN 20 MG/DL (9-23); CALCIUM LEVEL 9.4 MG/DL (8.3-10.6); CARBON DIOXIDE LEVEL 22 MMOL/L (20-31); CHLORIDE LEVEL 106 MMOL/L (98-107); CREATININE FOR GFR 1.01 MG/DL (0.70-1.30); GLOMERULAR FILTRATION RATE > 60.0 (>42); GLUCOSE, FASTING 117 MG/DL (74-106); POTASSIUM SERUM 4.3 MMOL/L (3.5-5.1); SODIUM LEVEL 138 MMOL/L (136-145); TOTAL PROTEIN 7.5 G/DL (5.7-8.2)
[2023-05-15 17:24] LABS: INR 0.9; PROTHROMBIN TIME 12.3 SECONDS (12.5-14.5)
== END ==
LOC: M LABDRWAD 16:45
PROVIDERS: ATTEND Internal Medicine Gastroenterology
DX: D37.6 Neoplasm of uncertain behavior of liver, gallbladder and bile ducts (principal); K74.60 Unspecified cirrhosis of liver; R94.5 Abnormal results of liver function studies

== ENCOUNTER → 2023-05-20 | Outpatient (CLI) | payer MEDICARE, OTHER ==
[~2023-05-20] MED LIST changes: +PROHANCE 279.3MG/ML 15ML VIAL ONE; +PROHANCE 279.3MG/ML 5ML VIAL ONE
== END ==
LOC: M PLAIMG 12:49
PROVIDERS: ATTEND Internal Medicine Gastroenterology
DX: D37.6 Neoplasm of uncertain behavior of liver, gallbladder and bile ducts (principal); K76.0 Fatty (change of) liver, not elsewhere classified; K74.60 Unspecified cirrhosis of liver; R16.0 Hepatomegaly, not elsewhere classified; R94.5 Abnormal results of liver function studies
CPT/HCPCS: 74183; A9576

== ENCOUNTER → 2023-07-24 | Outpatient (REF) | payer MEDICARE, OTHER ==
[~2023-07-24] MED LIST changes: -PREG150C PO; +PREG150C2 PO; -PROHANCE 279.3MG/ML 15ML VIAL ONE; -PROHANCE 279.3MG/ML 5ML VIAL ONE
[2023-07-24 20:30] LABS: BLOOD UREA NITROGEN 18 MG/DL (9-23); CALCIUM LEVEL 9.2 MG/DL (8.3-10.6); CARBON DIOXIDE LEVEL 22 MMOL/L (20-31); CHLORIDE LEVEL 109 MMOL/L (98-107); CREATININE FOR GFR 1.06 MG/DL (0.70-1.30); GLOMERULAR FILTRATION RATE > 60.0 (>42); GLUCOSE, FASTING 83 MG/DL (74-106); POTASSIUM SERUM 3.8 MMOL/L (3.5-5.1); SODIUM LEVEL 141 MMOL/L (136-145)
[2023-07-24 20:40] LABS: HEMOGLOBIN A1c 6.1 % (4.0-6.0)
== END ==
LOC: M SFHCADAM 15:27
PROVIDERS: ATTEND Physician Assistant
DX: E11.9 Type 2 diabetes mellitus without complications (principal)

== ENCOUNTER → 2023-09-02 | Outpatient (CLI) | payer MEDICARE, OTHER | LOC: M CARPUL 10:07 | PROVIDERS: ATTEND Physician Assistant | DX: R01.1 Cardiac murmur, unspecified (principal) ==

== ENCOUNTER → 2023-11-24 | Outpatient (REF) | payer MEDICARE, OTHER ==
[2023-11-24 16:35] LABS: PLATELET COUNT, AUTOMATED 188 10^3/uL (150-450)
[2023-11-24 16:50] LABS: INR 1.09; PROTHROMBIN TIME 13.8 SECONDS (12.5-14.5)
[2023-11-24 16:51] LABS: PARTIAL THROMBOPLASTIN TIME 35.9 SECONDS (24.8-34.2)
== END ==
LOC: M LABDRWAD 15:54
PROVIDERS: ATTEND Physician Assistant
DX: Z01.818 Encounter for other preprocedural examination (principal); Z79.01 Long term (current) use of anticoagulants

== ENCOUNTER → 2023-12-05 | Outpatient (REF) | payer MEDICARE, OTHER ==
[2023-12-05 13:13] LABS: INR 0.99; PROTHROMBIN TIME 12.8 SECONDS (12.5-14.5)
[2023-12-05 13:38] LABS: ALBUMIN 4.2 G/DL (3.2-5.2); ALKALINE PHOSPHATASE 92 U/L (46-116); ALT/SGPT 84 U/L (7.0-40); AST/SGOT 38 U/L (<34); BILIRUBIN,DIRECT 0.4 MG/DL (<0.4); BLOOD UREA NITROGEN 21 MG/DL (9-23); CREATININE FOR GFR 0.97 MG/DL (0.70-1.30); GLOMERULAR FILTRATION RATE > 60.0 (>42); TOTAL PROTEIN 7.4 G/DL (5.7-8.2)
[2023-12-10 15:08] LABS: AFP TUMOR L3% 47.3 % (0.0-9.9); AFP TUMOR TOTAL 16.6 ng/mL (0.0-8.4)
== END ==
LOC: M LABDRWAD 12:19
PROVIDERS: ATTEND Internal Medicine Gastroenterology
DX: K74.60 Unspecified cirrhosis of liver (principal); D37.8 Neoplasm of uncertain behavior of other specified digestive organs; D37.6 Neoplasm of uncertain behavior of liver, gallbladder and bile ducts

== ENCOUNTER → 2023-12-11 | Outpatient (CLI) | payer MEDICARE, OTHER ==
[~2023-12-11] MED LIST changes: +PROHANCE 279.3MG/ML 15ML VIAL ONE; +PROHANCE 279.3MG/ML 5ML VIAL ONE
== END ==
LOC: M PLAIMG 13:35
PROVIDERS: ATTEND Internal Medicine Gastroenterology
DX: D37.6 Neoplasm of uncertain behavior of liver, gallbladder and bile ducts (principal); D37.8 Neoplasm of uncertain behavior of other specified digestive organs; K76.0 Fatty (change of) liver, not elsewhere classified; N28.1 Cyst of kidney, acquired
CPT/HCPCS: 74183; A9576

== ENCOUNTER → 2023-12-25 | Outpatient (CLI) | payer MEDICARE, OTHER ==
[~2023-12-25] MED LIST changes: -PROHANCE 279.3MG/ML 15ML VIAL ONE; -PROHANCE 279.3MG/ML 5ML VIAL ONE
[2023-12-25 13:29] LABS: HEMATOCRIT 49.2 % (42.0-52.0); HEMOGLOBIN 17.1 g/dl (13.5-17.5); MEAN CORPUSCULAR HEMOGLOBIN 32.9 pg (27.0-33.0); MEAN CORPUSCULAR HGB CONC 34.8 g/dl (32.0-36.5); MEAN CORPUSCULAR VOLUME 94.8 fl (80.0-96.0); PLATELET COUNT, AUTOMATED 166 10^3/uL (150-450); RED BLOOD COUNT 5.19 10^6/uL (4.30-6.10); WHITE BLOOD COUNT 10.1 10^3/uL (4.0-10.0)
[2023-12-25 13:34] LABS: HEMOGLOBIN A1c 7.6 % (4.0-6.0)
[2023-12-25 13:45] LABS: PSA SCREENING 0.59 NG/ML (< 4.00)
[2023-12-25 13:48] LABS: ALBUMIN 4.1 G/DL (3.2-5.2); ALKALINE PHOSPHATASE 97 U/L (46-116); ALT/SGPT 65 U/L (7.0-40); AST/SGOT 33 U/L (<34); BILIRUBIN,TOTAL 0.7 MG/DL (0.3-1.2); BLOOD UREA NITROGEN 21 MG/DL (9-23); CARBON DIOXIDE LEVEL 26 MMOL/L (20-31); CHLORIDE LEVEL 107 MMOL/L (98-107); CHOLESTEROL LEVEL 119 MG/DL (<200); CREATININE FOR GFR 0.98 MG/DL (0.70-1.30); GLOMERULAR FILTRATION RATE > 60.0 (>42); GLUCOSE, FASTING 166 MG/DL (74-106); POTASSIUM SERUM 4.9 MMOL/L (3.5-5.1); SODIUM LEVEL 138 MMOL/L (136-145); TOTAL PROTEIN 7.4 G/DL (5.7-8.2); TRIGLYCERIDES LEVEL 85 MG/DL (<150)
[2023-12-25 13:49] LABS: FREE T4 0.88 NG/DL (0.89-1.76)
[2023-12-25 13:50] LABS: THYROID STIMULATING HORMONE 1.961 uIU/ML (0.55-4.78)
== END ==
LOC: M SFHCADAM 08:42 → M RAD 08:42
PROVIDERS: ATTEND Physician Assistant
DX: E11.9 Type 2 diabetes mellitus without complications (principal); R01.1 Cardiac murmur, unspecified; E78.2 Mixed hyperlipidemia; K74.69 Other cirrhosis of liver; I10 Essential (primary) hypertension; Z12.5 Encounter for screening for malignant neoplasm of prostate
CPT/HCPCS: 80053; 80061; 83036; 84439; 84443; 85027; G0103

== ENCOUNTER → 2024-02-03 | Outpatient (CLI) | payer MEDICARE, OTHER | LOC: M RAD 10:23 | PROVIDERS: ATTEND Physician Assistant | DX: R77.2 Abnormality of alphafetoprotein (principal); L72.9 Follicular cyst of the skin and subcutaneous tissue, unspecified ==

== ENCOUNTER → 2024-03-16 | Outpatient (CLI) | payer MEDICARE, OTHER | LOC: M RAD 09:02 | PROVIDERS: ATTEND Physician Assistant | DX: Z12.2 Encounter for screening for malignant neoplasm of respiratory organs (principal); F17.210 Nicotine dependence, cigarettes, uncomplicated ==

== ENCOUNTER → 2024-03-22 | Outpatient (REF) | payer MEDICARE, OTHER ==
[~2024-03-22] MED LIST changes: +SEMA0.257 SC
[2024-03-22 18:08] LABS: INR 0.97; PROTHROMBIN TIME 12.6 SECONDS (12.5-14.5)
[2024-03-22 18:50] LABS: ALBUMIN 4.1 G/DL (3.2-5.2); ALKALINE PHOSPHATASE 97 U/L (46-116); ALT/SGPT 76 U/L (7.0-40); AST/SGOT 48 U/L (<34); BILIRUBIN,DIRECT 0.4 MG/DL (<0.4); IMMUNOGLOBULIN A 358.2 MG/DL (40-350); IRON (FE) 142 UG/DL (65-175); PERCENT SATURATION 42.1 % (19.7-50.0); TOTAL IRON BINDING CAPACITY 337 UG/DL (250-425); TOTAL PROTEIN 7.4 G/DL (5.7-8.2)
[2024-03-22 19:10] LABS: HEPATITIS B SURFACE ANTIGEN NEGATIVE (NEGATIVE)
[2024-03-31 10:07] LABS: ANA SCREEN, IFA NEGATIVE (NEGATIVE); ANTI-MITOCHONDRIAL ANTIBODY NEGATIVE (NEGATIVE); LIVER-KIDNEY MICROSOMAL ABY <= 20.0 UNITS (<=20.0)
[2024-03-31 10:08] LABS: ALPHA 1 ANTITRYPSIN 188 mg/dL (83-199)
[2024-03-31 10:13] LABS: ANCA SCREEN NEGATIVE (NEGATIVE)
[2024-03-31 10:18] LABS: AFP TUMOR TOTALX 23.6
== END ==
LOC: M LABDRWAD 16:52
PROVIDERS: ATTEND Internal Medicine Gastroenterology
DX: R94.5 Abnormal results of liver function studies (principal); K74.60 Unspecified cirrhosis of liver; R97.8 Other abnormal tumor markers; Z11.59 Encounter for screening for other viral diseases

== ENCOUNTER → 2024-04-06 | Outpatient (REF) | payer MEDICARE, OTHER | LOC: M LABDRWAD 16:53 | PROVIDERS: ATTEND Internal Medicine Gastroenterology | DX: R94.5 Abnormal results of liver function studies (principal); K74.60 Unspecified cirrhosis of liver; R97.8 Other abnormal tumor markers ==

== ENCOUNTER 2024-04-08 06:24 | Day surgery (SDC) | payer MEDICARE, OTHER ==
[~2024-04-08] VITALS: Ht 172.7 cm; Wt 95.1 kg
[2024-04-08] MEDS: NS 1,000 ML IV ONE (06:54)
[2024-04-08] MEDS ORDERED: propofoL 200 MG/20 ML VIAL As Ordered ONE (06:58)
[2024-04-08 08:06] VITALS: TEMP 98.3
[2024-04-08 08:25] VITALS: BP 177/91; O2SAT 95
== END 2024-04-08 08:40 | disposition home or self-care (01) ==
LOC: M OPP 06:24
PROVIDERS: ATTEND Internal Medicine Gastroenterology
DX: Z12.11 Encounter for screening for malignant neoplasm of colon (principal); Z86.010 Personal history of colon polyps; D12.2 Benign neoplasm of ascending colon; K63.5 Polyp of colon; K64.8 Other hemorrhoids; K57.30 Diverticulosis of large intestine without perforation or abscess without bleeding; E11.9 Type 2 diabetes mellitus without complications; G47.9 Sleep disorder, unspecified; F17.200 Nicotine dependence, unspecified, uncomplicated; Z79.02 Long term (current) use of antithrombotics/antiplatelets; Z79.4 Long term (current) use of insulin; Z79.82 Long term (current) use of aspirin; Z79.891 Long term (current) use of opiate analgesic; Z79.899 Other long term (current) drug therapy

== ENCOUNTER → 2024-06-23 | Outpatient (REF) | payer MEDICARE, OTHER ==
[2024-06-23 19:04] LABS: BASO # 0.2 10^3/uL (0.0-0.2); BASO % 2.2 % (0.0-1.0); EOS # 0.2 10^3/uL (0.0-0.5); EOS % 2.2 % (0.0-3.0); HEMATOCRIT 51.1 % (42.0-52.0); HEMOGLOBIN 16.7 g/dl (13.5-17.5); LYMPH # 2.7 10^3/uL (1.5-5.0); LYMPH % 30.6 % (24.0-44.0); MEAN CORPUSCULAR HEMOGLOBIN 32.1 pg (27.0-33.0); MEAN CORPUSCULAR HGB CONC 32.7 g/dl (32.0-36.5); MEAN CORPUSCULAR VOLUME 98.1 fl (80.0-96.0); MONO % 11.1 % (2.0-8.0); NEUTROPHILS # 4.7 10^3/uL (1.5-8.5); NEUTROPHILS % 53.2 % (36.0-66.0); PLATELET COUNT, AUTOMATED 210 10^3/uL (150-450); RED BLOOD COUNT 5.21 10^6/uL (4.30-6.10); WHITE BLOOD COUNT 8.9 10^3/uL (4.0-10.0)
[2024-06-23 19:06] LABS: ALBUMIN 3.7 G/DL (3.2-5.2); ALKALINE PHOSPHATASE 109 U/L (46-116); ALT/SGPT 73 U/L (7.0-40); AST/SGOT 55 U/L (<34); BILIRUBIN,TOTAL 0.8 MG/DL (0.3-1.2); BLOOD UREA NITROGEN 16 MG/DL (9-23); CALCIUM LEVEL 9.7 MG/DL (8.3-10.6); CARBON DIOXIDE LEVEL 26 MMOL/L (20-31); CHLORIDE LEVEL 109 MMOL/L (98-107); CREATININE FOR GFR 1.12 MG/DL (0.70-1.30); GLOMERULAR FILTRATION RATE > 60.0 (>42); GLUCOSE, FASTING 106 MG/DL (74-106); POTASSIUM SERUM 4.6 MMOL/L (3.5-5.1); SODIUM LEVEL 137 MMOL/L (136-145); TOTAL PROTEIN 7.7 G/DL (5.7-8.2)
== END ==
LOC: M SFHCADAM 13:23
PROVIDERS: ATTEND Physician Assistant
DX: I10 Essential (primary) hypertension (principal); E11.9 Type 2 diabetes mellitus without complications; R97.8 Other abnormal tumor markers; K74.60 Unspecified cirrhosis of liver

== ENCOUNTER → 2024-06-23 | Outpatient (REF) | payer MEDICARE, OTHER ==
[2024-06-23 19:00] LABS: ALBUMIN 3.8 G/DL (3.2-5.2); BILIRUBIN,DIRECT 0.3 MG/DL (<0.4); BILIRUBIN,TOTAL 0.9 MG/DL (0.3-1.2); TOTAL PROTEIN 7.8 G/DL (5.7-8.2)
[2024-06-30 16:12] LABS: AFP TUMOR L3 47.6 % (0.5-9.9); AFP TUMOR TOTAL 67.2 ng/mL (1.6-4.5)
== END ==
LOC: M LAB REF 18:46
PROVIDERS: ATTEND Internal Medicine Gastroenterology
DX: R97.8 Other abnormal tumor markers (principal); K74.60 Unspecified cirrhosis of liver

== ENCOUNTER → 2024-07-16 | Outpatient (CLI) | payer MEDICARE, OTHER | LOC: M RAD 09:01 | PROVIDERS: ATTEND Internal Medicine Gastroenterology | DX: K74.60 Unspecified cirrhosis of liver (principal); R97.8 Other abnormal tumor markers; N28.1 Cyst of kidney, acquired ==

== ENCOUNTER → 2024-08-27 | Outpatient (CLI) | payer MEDICARE, OTHER ==
[~2024-08-27] MED LIST changes: +ISOVUE-370 76% 100ML VIAL As Ordered ONE
== END ==
LOC: M RAD 09:08
PROVIDERS: ATTEND Surgery
DX: C22.0 Liver cell carcinoma (principal); R16.0 Hepatomegaly, not elsewhere classified; R93.2 Abnormal findings on diagnostic imaging of liver and biliary tract; R97.8 Other abnormal tumor markers
CPT/HCPCS: 71260; Q9967

== ENCOUNTER 2024-09-13 12:09 | Day surgery (SDC) | payer MEDICARE, OTHER ==
[~2024-09-13] VITALS: Ht 172.7 cm; Wt 96.2 kg
[~2024-09-13 12:09] MED LIST changes: -ISOVUE-370 76% 100ML VIAL As Ordered ONE; +LIDOCAINE 2% 100MG/5ML SDV (FOR ANES.) As Ordered ONE; +NS 250 ML IV ONE; +fentaNYL 100 MCG/2 ML INJECTION As Ordered ONE; +propofoL 200 MG/20 ML VIAL As Ordered ONE
[2024-09-13 13:13] VITALS: TEMP 97.5
[2024-09-13 13:36] VITALS: BP 121/73; O2SAT 93
== END 2024-09-13 13:37 | disposition home or self-care (01) ==
LOC: M OPP 12:09
PROVIDERS: ATTEND Internal Medicine Gastroenterology
DX: K74.60 Unspecified cirrhosis of liver (principal); I10 Essential (primary) hypertension; E78.5 Hyperlipidemia, unspecified; E11.9 Type 2 diabetes mellitus without complications; M19.90 Unspecified osteoarthritis, unspecified site; F17.210 Nicotine dependence, cigarettes, uncomplicated; Z79.4 Long term (current) use of insulin; Z79.82 Long term (current) use of aspirin; Z79.84 Long term (current) use of oral hypoglycemic drugs; Z79.85 Long-term (current) use of injectable non-insulin antidiabetic drugs; Z79.899 Other long term (current) drug therapy; Z80.1 Family history of malignant neoplasm of trachea, bronchus and lung
CPT/HCPCS: 43235; J3010

== ENCOUNTER → 2024-09-14 | Outpatient (CLI) | payer MEDICARE, OTHER ==
[~2024-09-14] MED LIST changes: -LIDOCAINE 2% 100MG/5ML SDV (FOR ANES.) As Ordered ONE; -NS 250 ML IV ONE; -fentaNYL 100 MCG/2 ML INJECTION As Ordered ONE; -propofoL 200 MG/20 ML VIAL As Ordered ONE
== END ==
LOC: M CARPUL 13:45
PROVIDERS: ATTEND Internal Medicine Hematology & Oncology
DX: C22.0 Liver cell carcinoma (principal); I35.0 Nonrheumatic aortic (valve) stenosis

== ENCOUNTER → 2024-09-20 | Outpatient (CLI) | payer MEDICARE, OTHER ==
[2024-09-20 10:08] LABS: BASO # 0.2 10^3/uL (0.0-0.2); BASO % 2.2 % (0.0-1.0); EOS # 0.2 10^3/uL (0.0-0.5); EOS % 2.6 % (0.0-3.0); HEMOGLOBIN 16.7 g/dl (13.5-17.5); LYMPH # 2.3 10^3/uL (1.5-5.0); LYMPH % 26.9 % (24.0-44.0); MEAN CORPUSCULAR HEMOGLOBIN 32.4 pg (27.0-33.0); MEAN CORPUSCULAR HGB CONC 34.1 g/dl (32.0-36.5); MEAN CORPUSCULAR VOLUME 95.1 fl (80.0-96.0); MONO # 0.9 10^3/uL (0.0-0.8); MONO % 11.1 % (2.0-8.0); NEUTROPHILS # 4.8 10^3/uL (1.5-8.5); NEUTROPHILS % 56.7 % (36.0-66.0); PLATELET COUNT, AUTOMATED 172 10^3/uL (150-450); RED BLOOD COUNT 5.15 10^6/uL (4.30-6.10); WHITE BLOOD COUNT 8.5 10^3/uL (4.0-10.0)
[2024-09-20 10:33] LABS: ALBUMIN 3.8 G/DL (3.2-5.2); ALKALINE PHOSPHATASE 99 U/L (40-129); ALT/SGPT 61 U/L (7.0-40); AST/SGOT 53 U/L (<34); BLOOD UREA NITROGEN 17 MG/DL (9-23); CALCIUM LEVEL 10.1 MG/DL (8.3-10.6); CARBON DIOXIDE LEVEL 26 MMOL/L (20-31); CHLORIDE LEVEL 106 MMOL/L (98-107); CREATININE FOR GFR 0.92 MG/DL (0.70-1.30); GLOMERULAR FILTRATION RATE > 60.0 (>42); GLUCOSE, FASTING 103 MG/DL (74-106); SODIUM LEVEL 138 MMOL/L (136-145); TOTAL PROTEIN 8.1 G/DL (5.7-8.2)
== END ==
LOC: M LAB 09:17
PROVIDERS: ATTEND Internal Medicine Hematology & Oncology
DX: C22.0 Liver cell carcinoma (principal)

== ENCOUNTER → 2024-10-05 | Outpatient (CLI) | payer MEDICARE, OTHER | LOC: M PLARAD 14:41 | PROVIDERS: ATTEND Internal Medicine Hematology & Oncology | DX: C22.0 Liver cell carcinoma (principal) | CPT/HCPCS: 78815; A9552 ==

== ENCOUNTER → 2024-10-15 | Outpatient (REF) | payer MEDICARE, OTHER ==
[2024-10-16 16:39] LABS: CA19-9 TUMOR MARKER,CARBOHYDRA 13.8 U/ML (<35.0)
== END ==
LOC: M LABDRWAD 17:01
PROVIDERS: ATTEND Registered Nurse
DX: K76.9 Liver disease, unspecified (principal); D37.6 Neoplasm of uncertain behavior of liver, gallbladder and bile ducts; R97.8 Other abnormal tumor markers; Z86.19 Personal history of other infectious and parasitic diseases

== ENCOUNTER → 2024-11-19 | Outpatient (REF) | payer MEDICARE, OTHER ==
[2024-11-19 17:26] LABS: PROTHROMBIN TIME 13.5 SECONDS (12.5-14.5)
[2024-11-19 17:27] LABS: PLATELET COUNT, AUTOMATED 128 10^3/uL (150-450)
== END ==
LOC: M LABDRWAD 16:52
PROVIDERS: ATTEND Physician Assistant
DX: Z01.818 Encounter for other preprocedural examination (principal)

== ENCOUNTER → 2024-11-22 | Outpatient (CLI) | payer MEDICARE, OTHER | LOC: M RAD 10:08 | PROVIDERS: ATTEND Physician Assistant | DX: R09.89 Other specified symptoms and signs involving the circulatory and respiratory systems (principal) ==

== ENCOUNTER → 2024-12-09 | Outpatient (CLI) | payer MEDICARE, OTHER ==
[~2024-12-09] VITALS: Ht 170.2 cm; Wt 87.0 kg
[~2024-12-09] MED LIST changes: +SODIUM CHLORIDE 0.9% INJ 10 ML SYR IV SCH
[2024-12-09 07:55] VITALS: TEMP 98.3
[2024-12-09] MEDS: ceFAZolin SOD 2 GM in IV 1 EA IV SCH (08:56)
[2024-12-09] MEDS: NS (Normal Saline) 0.9% 1,000 ML IV SCH (08:57)
[2024-12-09] MEDS: MIDAZOLAM INJ 2MG/2ML VIAL IV PRN (09:42)
[2024-12-09] MEDS: fentaNYL 100 MCG/2 ML INJECTION IV PRN (09:42)
[2024-12-09] MEDS: LIDOCAINE 1% MDV 20ML VIAL SC SCH (10:03)
[2024-12-09 11:38] LABS: BLOOD UREA NITROGEN 14 MG/DL (9-23); CALCIUM LEVEL 8.5 MG/DL (8.3-10.6); CARBON DIOXIDE LEVEL 26 MMOL/L (20-31); CHLORIDE LEVEL 108 MMOL/L (98-107); GLOMERULAR FILTRATION RATE > 60.0 (>42); GLUCOSE, FASTING 96 MG/DL (74-106); MAGNESIUM LEVEL 1.9 MG/DL (1.8-2.4); POTASSIUM SERUM 4.7 MMOL/L (3.5-5.1); SODIUM LEVEL 140 MMOL/L (136-145)
[2024-12-09 11:45] VITALS: BP 158/74; O2SAT 97
== END ==
LOC: M IRPRO 07:34
PROVIDERS: ATTEND Internal Medicine Hematology & Oncology
DX: C22.0 Liver cell carcinoma (principal)
CPT/HCPCS: 36415; 36561; 80048; 83735; 93005; 99152; 99153; C1894; J0690; J1642; J2250; J3010

== ENCOUNTER → 2025-02-15 | Outpatient (REF) | payer MEDICARE, OTHER ==
[~2025-02-15] MED LIST changes: +LIDO30CR18 TOP; +ONDA-84 PO; +POTA-298 PO; +PROC10TA5 PO; -SODIUM CHLORIDE 0.9% INJ 10 ML SYR IV SCH
[2025-02-15 14:41] LABS: HEMOGLOBIN A1c 5.1 % (4.0-6.0)
[2025-02-15 14:44] LABS: PSA SCREENING 0.54 NG/ML (< 4.00)
[2025-02-15 14:47] LABS: CHOLESTEROL RISK RATIO 3.38 (<5); HDL CHOLESTEROL 41.6 MG/DL (>40); LDL CHOLESTEROL 76.4 MG/DL (<100); NON-HDL-C 99.4 MG/DL
== END ==
LOC: M SFHCADAM 08:07
PROVIDERS: ATTEND Physician Assistant
DX: E11.9 Type 2 diabetes mellitus without complications (principal); Z12.5 Encounter for screening for malignant neoplasm of prostate
CPT/HCPCS: 80061; 83036; G0103

== ENCOUNTER → 2025-02-22 | Outpatient (CLI) | payer MEDICARE, OTHER | LOC: M PLARAD 08:53 | PROVIDERS: ATTEND Specialist | DX: C22.0 Liver cell carcinoma (principal) | CPT/HCPCS: 78815; A9552 ==

== ENCOUNTER → 2025-05-24 | Outpatient (CLI) | payer MEDICARE, OTHER ==
[~2025-05-24] MED LIST changes: -EQL50TAB2 PO; +VITA1TAB82 PO
== END ==
LOC: M PLARAD 11:43
PROVIDERS: ATTEND Specialist
DX: C22.0 Liver cell carcinoma (principal)
CPT/HCPCS: 78815; A9552

== ENCOUNTER → 2025-08-17 | Outpatient (REF) | payer MEDICARE, OTHER ==
[~2025-08-17] MED LIST changes: +LEVO50TA5 PO; +TRIA1OI TOP; +UREA20CR EX; +potassium
[2025-08-17 13:23] LABS: FREE T4 0.93 NG/DL (0.89-1.76)
[2025-08-17 13:29] LABS: INR 0.95
[2025-08-17 13:46] LABS: ESTIMATED AVERAGE GLUCOSE 111.0 MG/DL (60-110)
== END ==
LOC: M SFHCADAM 07:29
PROVIDERS: ATTEND Physician Assistant
DX: E11.9 Type 2 diabetes mellitus without complications (principal); K74.60 Unspecified cirrhosis of liver; C22.0 Liver cell carcinoma; I10 Essential (primary) hypertension; I35.0 Nonrheumatic aortic (valve) stenosis

== ENCOUNTER → 2025-09-12 | Outpatient (CLI) | payer MEDICARE, OTHER | LOC: M PLARAD 08:42 | PROVIDERS: ATTEND Specialist | DX: C22.0 Liver cell carcinoma (principal) | CPT/HCPCS: 78815; A9552 ==

== ENCOUNTER → 2025-09-23 | Outpatient (CLI) | payer MEDICARE, OTHER ==
[~2025-09-23] MED LIST changes: +ISOVUE-370 76% 100 ML VIAL As Ordered ONE
== END ==
LOC: M RAD 10:39
PROVIDERS: ATTEND Radiology Diagnostic Radiology
DX: C22.1 Intrahepatic bile duct carcinoma (principal); N28.1 Cyst of kidney, acquired; M47.816 Spondylosis without myelopathy or radiculopathy, lumbar region; I81 Portal vein thrombosis
CPT/HCPCS: 74170; Q9967

== ENCOUNTER → 2025-09-28 | Outpatient (POV) | payer MEDICARE, OTHER ==
[~2025-09-28] MED LIST changes: +HYDR25OIN TOP; -ISOVUE-370 76% 100 ML VIAL As Ordered ONE
== END ==
LOC: M IRPOV 13:00
PROVIDERS: ATTEND Radiology Diagnostic Radiology
DX: C22.0 Liver cell carcinoma (principal); D49.9 Neoplasm of unspecified behavior of unspecified site; F17.210 Nicotine dependence, cigarettes, uncomplicated; Z79.891 Long term (current) use of opiate analgesic; Z79.82 Long term (current) use of aspirin; Z79.85 Long-term (current) use of injectable non-insulin antidiabetic drugs; Z79.899 Other long term (current) drug therapy

== ENCOUNTER → 2025-10-06 | Outpatient (CLI) | payer MEDICARE, OTHER ==
[~2025-10-06] MED LIST changes: -HYDR25OIN TOP
== END ==
LOC: M ONCR 15:09
PROVIDERS: ATTEND General Practice
DX: C22.0 Liver cell carcinoma (principal); F17.210 Nicotine dependence, cigarettes, uncomplicated; Z79.899 Other long term (current) drug therapy; Z86.19 Personal history of other infectious and parasitic diseases

== ENCOUNTER 2025-10-18 11:00 | Outpatient (RCR) | payer MEDICARE, OTHER ==
[2025-10-19] MEDS ORDERED: HYDR25OIN TOP (09:14)
== END 2025-10-19 ==
LOC: M ONCR 11:00
PROVIDERS: ATTEND General Practice
DX: Z51.0 Encounter for antineoplastic radiation therapy (principal); C22.0 Liver cell carcinoma